=== PATIENT | female | born 1990 | race Caucasian/White ===

== ENCOUNTER → 2019-09-26 | Outpatient (CLI) | payer OTHER | LOC: M LABSMTC 12:49 | PROVIDERS: ATTEND Family Medicine | DX: Z11.59 Encounter for screening for other viral diseases (principal); Z20.828 Contact with and (suspected) exposure to other viral communicable diseases ==

== ENCOUNTER → 2020-01-09 | Outpatient (REF) | payer OTHER ==
[2020-02-09 14:14] LABS: CHLAMYDIA DNA AMPLIFICATION NEGATIVE (NEGATIVE); GC DNA AMPLIFICATION NEGATIVE (NEGATIVE)
[2020-02-21 11:40] LABS: HEPATITIS C VIRUS ABY INDEX 0.2 INDEX (<0.8); HIV 1&2 SCREEN CENTAUR NEGATIVE (NEGATIVE)
== END ==
LOC: M SFHCWAGY 08:00 → M LAB REF 08:00
PROVIDERS: ATTEND Advanced Practice Midwife
DX: Z12.4 Encounter for screening for malignant neoplasm of cervix (principal)
CPT/HCPCS: 36415; 86780; 86803; 87389; 87491; 87591; 87624; G0123

== ENCOUNTER 2020-08-17 12:16 | Emergency (ER) | payer OTHER ==
[~2020-08-17] VITALS: Ht 165.1 cm; Wt 65.0 kg
[2020-08-17 13:26] LABS: BASO # 0.1 10^3/uL (0.0-0.2); BASO % 0.7 % (0.0-1.0); EOS # 0.1 10^3/uL (0.0-0.5); HEMATOCRIT 39.7 % (36.0-47.0); HEMOGLOBIN 13.3 g/dl (12.0-15.5); LYMPH # 2.4 10^3/uL (1.5-5.0); LYMPH % 22.5 % (24.0-44.0); MEAN CORPUSCULAR HEMOGLOBIN 31.1 pg (27.0-33.0); MEAN CORPUSCULAR HGB CONC 33.5 g/dl (32.0-36.5); MONO # 0.9 10^3/uL (0.0-0.8); MONO % 8.2 % (2.0-8.0); NEUTROPHILS # 7.2 10^3/uL (1.5-8.5); NEUTROPHILS % 67.2 % (36.0-66.0); PLATELET COUNT, AUTOMATED 272 10^3/uL (150-450); RED BLOOD COUNT 4.27 10^6/uL (4.00-5.40); WHITE BLOOD COUNT 10.7 10^3/uL (4.0-10.0)
--- NOTE | 2020-08-17 13:50 | REP ---
INDICATION: chest discomfort. COMPARISON: No comparison study. TECHNIQUE: Two views.. FINDINGS: The lungs are well inflated and free of infiltrate. The pleural angles are sharp. The heart size is normal. Pulmonary vasculature is not increased. No significant bony abnormality is seen. IMPRESSION: Negative chest x-ray. <Electronically signed by Kolton Dykes > 08/17/20 [id number]
[2020-08-17 13:51] LABS: ALBUMIN 4.2 GM/DL (3.2-5.2); BILIRUBIN,DIRECT 0.1 MG/DL (0.0-0.2); BILIRUBIN,TOTAL 0.4 MG/DL (0.2-1.0); TOTAL PROTEIN 7.7 GM/DL (6.4-8.2)
--- NOTE | 2020-08-17 13:51 | REP ---
INDICATION: pain between shoulder blades and over thoracic spine. COMPARISON: None. TECHNIQUE: Three views of the thoracic spine. FINDINGS: Thoracic vertebral body heights are preserved alignment is normal. Pedicles and posterior elements are intact. No paravertebral soft tissue edema or swelling is seen. Disc spaces are maintained. Swimmer's lateral view shows no additional abnormality. IMPRESSION: Unremarkable thoracic spine radiographs. <Electronically signed by Kolton Dykes > 08/17/20 [id number]
[2020-08-17 14:42] VITALS: BP 122/77
--- NOTE | 2020-08-18 07:37 | ECGEPIP ---
[facility] - ED Test Date: 2020-08-17 Pat Name: CHELA PALMA Department: Room: - Gender: Female [employer] Lab Technician: GAURANG : 1990 Requested By: MIGDALIA Espinosa PA-C Order Number: [id number] Reading MD: Milagros Traylor Measurements Intervals [place] Rate: 53 P: 67 NE: 150 QRS: 24 QRSD: 80 T: -6 QT: 444 QTc: 416 Interpretive Statements Sinus bradycardia Possible Left atrial enlargement right ventricular conduction delay NSTTW abnormalities No prior Electronically Signed on 08-18-2020 7:36:30 EDT by Milagros Traylor
== END 2020-08-17 14:40 | disposition home or self-care (01) ==
LOC: M ED 12:16
DX: M54.6 Pain in thoracic spine (principal); R00.1 Bradycardia, unspecified